=== PATIENT | female | born 1990 | race African-American/Black ===

== ENCOUNTER 2016-05-06 17:35 | Emergency (ER) | payer OTHER ==
[~2016-05-06] VITALS: Ht 167.6 cm; Wt 63.0 kg
[~2016-05-06 17:35] MED LIST: ADVAIR 250/501 DISK IH; LEVOFLOXACIN750 MG PO; MOTRIN600 MG PO; MOTRIN800 MG PO; PREDNISONE20 MG PO; PROVENTIL,2.5 MG/3 M IH; SINGULAIR10 MG PO; VENTOLIN HFA18 GM IH
[2016-05-06 19:42] LABS: HEMATOCRIT 37.2 % (36.0-46.0); MCHC 32.8 G/DL (30.0-36.0); PLATELET COUNT 270 K/uL (156-360); RBC DIS.WIDTH-SD 38.1 % (39-53); RED BLOOD COUNT 5.55 M/uL (3.80-5.20); WHITE BLOOD COUNT 6.9 K/uL (4.1-10.2)
[2016-05-06 19:51] LABS: CHLORIDE 99 mEq/L (99-109); SODIUM 136 mEq/L (136-147)
[2016-05-06 19:53] LABS: GLUCOSE 128 mg/dL (70-99)
[2016-05-06 19:54] LABS: ANION GAP 10 MEQ/L (2-14)
[2016-05-06 19:57] LABS: GFR ESTIMATE (CALCULATED) > 59 mL/min/; UREA NITROGEN (BUN) 9 mg/dL (9-23)
[2016-05-06 20:08] LABS: QUANTITATIVE HCG < 4.0 MIU/ML
[2016-05-06 20:31] LABS: INTERNAL CONTROL VALID? YES; MONOSPOT (MONONUCLEOSIS SEROL) NEGATIVE
[2016-05-06] MEDS ORDERED: VENTOLIN HFA18 GM IH (21:15)
[2016-05-06] MEDS ORDERED: MOTRIN800 MG PO (21:15)
[2016-05-06] MEDS ORDERED: ZOFRAN ODT4 MG PO (21:15)
[2016-05-06 21:34] VITALS: BP 109/67
== END 2016-05-06 21:43 | disposition home or self-care (01) ==
LOC: EME 17:35
PROVIDERS: Physician Assistant
DX: J06.9 Acute upper respiratory infection, unspecified (principal); J02.8 Acute pharyngitis due to other specified organisms; F17.200 Nicotine dependence, unspecified, uncomplicated
CPT/HCPCS: 80048; 84702; 85027; 86308; 87502; 87651 90; 99281; 99284

== ENCOUNTER 2016-06-17 14:50 | Emergency (ER) | payer OTHER ==
[~2016-06-17] VITALS: Ht 167.6 cm; Wt 58.7 kg
[~2016-06-17 14:50] MED LIST changes: +ZOFRAN ODT4 MG PO
[2016-06-17 17:43] LABS: ADD MIUA? YES; BILIRUBIN NEGATIVE; BLOOD NEGATIVE; COLOR AMBER ((YELLOW)); GLUCOSE (STRIP) NEGATIVE; KETONES 5; LEUKOCYTES NEGATIVE; NITRITE NEGATIVE; PROTEIN (STRIP) 100; SPECIFIC GRAVITY 1.028 (1.000-1.030)
[2016-06-17 17:54] LABS: INTERNAL CONTROL VALID? YES
[2016-06-17 17:56] LABS: CASTS NONE SEEN /LPF; EPITHELIAL CELLS 4+ /HPF; MUCUS 3+ /LPF
[2016-06-17 17:57] LABS: BACTERIA 3+ /HPF; RED BLOOD CELLS NONE SEEN /HPF (0-5); UCUL ADDED? NO; WHITE BLOOD CELLS 0-5 /HPF (0-5)
[2016-06-17] MEDS ORDERED: ZOFRAN4 MG PO (18:10)
[2016-06-17 18:17] VITALS: BP 119/59
== END 2016-06-17 18:18 | disposition home or self-care (01) ==
LOC: EME 14:50
PROVIDERS: Physician Assistant
DX: R11.2 Nausea with vomiting, unspecified (principal); R19.7 Diarrhea, unspecified; J02.9 Acute pharyngitis, unspecified; R51 Headache; Z72.0 Tobacco use
CPT/HCPCS: 81003; 84702; 84703; 87651 90; 99281; 99284

== ENCOUNTER 2016-09-06 14:21 | Emergency (ER) | payer OTHER ==
[~2016-09-06] VITALS: Ht 167.6 cm; Wt 65.8 kg
[~2016-09-06 14:21] MED LIST changes: +ZOFRAN4 MG PO
[2016-09-06 16:23] LABS: HEMATOCRIT 37.1 % (36.0-46.0); MCHC 31.8 G/DL (30.0-36.0); MCV 69.2 FL (83-99); MEAN PLAT.VOLUME 10.3 uM^3 (9.5-12.4); PLATELET COUNT 283 K/uL (156-360); RBC DIS.WIDTH-SD 39.5 % (39-53); RED BLOOD COUNT 5.36 M/uL (3.80-5.20); WHITE BLOOD COUNT 4.3 K/uL (4.1-10.2)
[2016-09-06 16:26] LABS: CHLORIDE 105 mEq/L (99-109); POTASSIUM 4.4 mEq/L (3.7-5.4); SODIUM 141 mEq/L (136-147)
[2016-09-06 16:28] LABS: GLUCOSE 87 mg/dL (70-99)
[2016-09-06 16:31] LABS: ANION GAP 8 MEQ/L (2-14); TOTAL BILIRUBIN 0.3 mg/dL (0.0-1.0)
[2016-09-06 16:32] LABS: ALKALINE PHOSPHATASE 71 IU/L (3-129); GFR ESTIMATE (CALCULATED) > 59 mL/min/
[2016-09-06 16:33] LABS: UREA NITROGEN (BUN) 12 mg/dL (9-23)
[2016-09-06 16:35] LABS: LIPASE 36 U/L (1.0-51.0)
[2016-09-06 16:36] LABS: ADD MIUA? YES; BILIRUBIN NEGATIVE; BLOOD NEGATIVE; COLOR YELLOW ((YELLOW)); GLUCOSE (STRIP) NEGATIVE; KETONES NEGATIVE; LEUKOCYTES NEGATIVE; NITRITE NEGATIVE; PROTEIN (STRIP) NEGATIVE; SPECIFIC GRAVITY 1.017 (1.000-1.030); UROBILINOGEN 0.2 MG/DL (0.2-1.0)
[2016-09-06 16:40] LABS: BACTERIA NONE SEEN /HPF; EPITHELIAL CELLS RARE /HPF; MUCUS NONE SEEN /LPF; RED BLOOD CELLS 0-5 /HPF (0-5); UCUL ADDED? NO; WHITE BLOOD CELLS 0-5 /HPF (0-5)
[2016-09-06 16:44] LABS: QUANTITATIVE HCG < 4.0 MIU/ML
[2016-09-06 17:12] VITALS: BP 144/81
== END 2016-09-06 17:12 | disposition home or self-care (01) ==
LOC: EME 14:21 → RME 16:14
PROVIDERS: Physician Assistant
DX: R10.2 Pelvic and perineal pain (principal); R10.11 Right upper quadrant pain; J45.909 Unspecified asthma, uncomplicated; Z72.0 Tobacco use
CPT/HCPCS: 80053; 81003; 83690; 84702; 85027; 99281; 99284

== ENCOUNTER 2016-10-09 02:38 | Emergency (ER) | payer OTHER ==
[~2016-10-09] VITALS: Ht 167.6 cm; Wt 66.3 kg
[2016-10-09 04:15] LABS: ADD MIUA? NO; BILIRUBIN NEGATIVE; BLOOD NEGATIVE; COLOR YELLOW ((YELLOW)); GLUCOSE (STRIP) NEGATIVE; KETONES NEGATIVE; LEUKOCYTES NEGATIVE; NITRITE NEGATIVE; PROTEIN (STRIP) NEGATIVE; SPECIFIC GRAVITY 1.014 (1.000-1.030); UCUL ADDED? NO; UROBILINOGEN 0.2 MG/DL (0.2-1.0)
[2016-10-09] MEDS ORDERED: MOTRIN600 MG PO (05:10)
[2016-10-09 06:16] VITALS: BP 107/73
== END 2016-10-09 06:17 | disposition home or self-care (01) ==
LOC: EME 02:38
PROVIDERS: Emergency Medicine
DX: J02.9 Acute pharyngitis, unspecified (principal); J45.909 Unspecified asthma, uncomplicated; F17.200 Nicotine dependence, unspecified, uncomplicated
CPT/HCPCS: 71010; 81003; 94640; 99281; 99284; J0561

== ENCOUNTER 2016-11-14 23:44 | Emergency (ER) | payer OTHER ==
[~2016-11-14] VITALS: Ht 167.6 cm; Wt 62.3 kg
[2016-11-15] MEDS ORDERED: MEDROL DOSEPAK4 MG PO (00:54)
[2016-11-15 01:05] VITALS: BP 121/64
== END 2016-11-15 01:06 | disposition home or self-care (01) ==
LOC: EME 23:44
DX: J45.901 Unspecified asthma with (acute) exacerbation (principal); F17.200 Nicotine dependence, unspecified, uncomplicated
CPT/HCPCS: 71020; 94640; 99281; 99283; J7512

== ENCOUNTER 2016-11-24 18:00 | Emergency (ER) | payer OTHER ==
[~2016-11-24] VITALS: Ht 167.6 cm; Wt 66.6 kg
[~2016-11-24 18:00] MED LIST changes: +MEDROL DOSEPAK4 MG PO
[2016-11-24] MEDS ORDERED: NARCAN4 MG NS (18:27)
[2016-11-24 18:35] VITALS: BP 123/82
== END 2016-11-24 18:43 | disposition left against medical advice (07) ==
LOC: EME 18:00
DX: T40.1X1A Poisoning by heroin, accidental (unintentional), initial encounter (principal); Z53.20 Procedure and treatment not carried out because of patient's decision for unspecified reasons; J45.909 Unspecified asthma, uncomplicated; F17.200 Nicotine dependence, unspecified, uncomplicated
CPT/HCPCS: 99281; 99283; J2310

== ENCOUNTER 2017-07-04 17:32 | Emergency (ER) | payer OTHER ==
[~2017-07-04] VITALS: Ht 167.6 cm; Wt 63.9 kg
[~2017-07-04 17:32] MED LIST changes: +NARCAN4 MG NS
[2017-07-04 20:33] LABS: ALBUMIN 4.3 g/dL (3.2-4.8); CHLORIDE 108 mEq/L (99-109); POTASSIUM 3.6 mEq/L (3.7-5.4); SODIUM 144 mEq/L (136-147)
[2017-07-04 20:36] LABS: BASOPHIL (%) 0.2 % (0-1); EOSINOPHIL (%) 0.6 % (0-5); EOSINOPHIL COUNT 0.1 K/uL (0-0.3); GLUCOSE 126 mg/dL (70-99); HEMATOCRIT 36.4 % (36.0-46.0); HEMOGLOBIN 11.6 G/DL (11.9-15.5); IMMATURE GRANULOCYTE (%) 0.5 % (0.0-0.7); LYMPHOCYTE (%) 10.9 % (15-42); LYMPHOCYTE COUNT 1.7 K/uL (1.0-2.8); MCH 21.9 PG (29.0-34.0); MCHC 31.9 G/DL (30.0-36.0); MCV 68.8 FL (83-99); MONOCYTE COUNT 0.9 K/uL (0-0.8); NEUTROPHIL (%) 81.8 % (45-76); NEUTROPHIL COUNT 12.6 K/uL (1.8-6.4); PLATELET COUNT 261 K/uL (156-360); RBC DIS.WIDTH-CV 15.2 % (11.8-14.6); RBC DIS.WIDTH-SD 36.9 % (39-53); RED BLOOD COUNT 5.29 M/uL (3.80-5.20); TOTAL PROTEIN 7.1 g/dL (6.4-8.3); WHITE BLOOD COUNT 15.4 K/uL (4.1-10.2)
[2017-07-04 20:37] LABS: TOTAL BILIRUBIN 0.3 mg/dL (0.0-1.0)
[2017-07-04 20:38] LABS: SERUM ETHYL ALCOHOL < 10 mg/dL
[2017-07-04 20:39] LABS: CREATININE 0.9 mg/dL (0.6-1.3); GFR ESTIMATE (CALCULATED) > 59 mL/min/
[2017-07-04 20:40] LABS: ALKALINE PHOSPHATASE 70 IU/L (3-129)
[2017-07-04 20:41] LABS: AST (GOT) 14 IU/L (2-34); UREA NITROGEN (BUN) 15 mg/dL (9-23)
[2017-07-04 20:43] LABS: ACETAMINOPHEN (TYLENOL) < 10 mcg/mL (10-30); ALT (GPT) 12 IU/L (3-49); SALICYLATE < 5.0 MG/DL (15-30)
[2017-07-04 20:49] LABS: QUANTITATIVE HCG < 4.0 MIU/ML
[2017-07-05 01:26] LABS: AMPHETAMINE NEGATIVE (500 ng/mL); BARBITURATES NEGATIVE (200 ng/mL); BENZODIAZEPINES NEGATIVE (150 ng/mL); BUPRENORPHINE NEGATIVE (10 ng/mL); COCAINE PRESUMPTIVE POSITIVE (150 ng/mL); METHADONE NEGATIVE (200 ng/mL); METHAMPHETAMINE NEGATIVE (500 ng/mL); OPIATES (MORPHINE) NEGATIVE (100 ng/mL); OXYCODONE NEGATIVE (100 ng/mL); PHENCYCLIDINE PRESUMPTIVE POSITIVE (25 ng/mL); PROPOXYPHENE NEGATIVE (300 ng/mL); THC CANNABINOIDS PRESUMPTIVE POSITIVE (50 ng/mL); TRICYCLIC ANTIDEPRESSANTS PRESUMPTIVE POSITIVE (300 ng/mL)
[2017-07-05 04:22] VITALS: BP 117/83
== END 2017-07-05 04:23 | disposition home or self-care (01) ==
LOC: EME 17:32
PROVIDERS: Emergency Medicine
DX: T50.901A Poisoning by unspecified drugs, medicaments and biological substances, accidental (unintentional), initial encounter (principal); R45.1 Restlessness and agitation; F19.10 Other psychoactive substance abuse, uncomplicated; J45.909 Unspecified asthma, uncomplicated; F17.200 Nicotine dependence, unspecified, uncomplicated
CPT/HCPCS: 70450; 80053; 84702; 84999; 85025; 99281; 99285; G0480; J2250